=== PATIENT | female | born 1965 | race Caucasian/White ===

== ENCOUNTER 2016-07-28 14:56 | Emergency (ER) | payer SELFPAY ==
[~2016-07-28] VITALS: Ht 170.2 cm; Wt 155.0 kg
[2016-07-28 15:01] VITALS: BP 142/78; PULSE 99; RESP 17; TEMP 97.8; O2SAT 99
--- NOTE | 2016-07-28 15:11 | PD ---
Physical Exam Time Seen by Provider: 15:08 Narrative 51 y/o female presents for evaluation of sob, palpitations for 2 hours. Vital signs reviewed. Seen at triage desk. Awaiting bed placement. Data Data Last Documented VS Vital Signs Date Time Temp Pulse Resp B/P Pulse Ox O2 Delivery O2 Flow Rate FiO2 07/28/16 15:01 97.8 99 17 142/78 99 MDM Medical Record Reviewed: Yes Supervised Visit with ELOY: Sha Harvey July 28, 2016 15:11
--- NOTE | 2016-07-29 18:48 | EKG ---
Date Performed: 07/28/2016 Time Performed: 15:24:19 PTAGE: 51 years EKG: SINUS TACHYCARDIA WITH FREQUENT SUPRAVENTRICULAR PREMATURE COMPLEXES ABNORMAL RHYTHM ECG IN TERPRETATION BASED ON A DEFAULT AGE OF 40 YEARS NO PREVIOUS TRACING DOCTOR: Dominic Eubanks Interpretating Date/Time 07/29/2016 18:43:57
== END 2016-07-28 16:25 | disposition left against medical advice (07) ==
LOC: NED 14:56
DX: R06.02 Shortness of breath (principal)
CPT/HCPCS: 93005; 99284